=== PATIENT | male | born 1965 | race Caucasian/White ===

== ENCOUNTER → 2023-03-03 08:29 | Outpatient (BNVA) | payer OTHER, SELFPAY | PROVIDERS: Visit Provider Physician Assistant ==

== ENCOUNTER 2023-03-10 08:12 | Outpatient (AMB) | payer OTHER, SELFPAY ==
--- NOTE | 2023-03-10 13:31 | A.OFFVIS_ITS ---
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 HPI Details Start time: 1.25pm, End time: 2.07pm ?I spent 37 minutes speaking with the patient on the phone plus an additional 5 minutes reviewing and updating records for a total of 42 minutes HPI Comments History of Present Illness Details Previous weight loss efforts: self diet and exercise Wakes up: 1.30am, Sleeps: 9pm Breakfast: skips Lunch: 11am (chicken salad, ham and cheese wrap) Dinner: 5.30pm (meatloaf or chicken) Snacks: 9am (granola bar), 3-4pm (fruit or granola bar) Exercise: none, has a treadmill at home Fluids: Coffee: none, tea: none, soda: 1 can of sprite or gingerale, juice: 1-2 bottles (lemonade or iced tea), ETOH: none PFSH Medical History (Updated 03/10/23 @ 13:35 by Richard Torres MD) DJD (degenerative joint disease) GERD (gastroesophageal reflux disease) Hypertension Morbid obesity Surgical History (Updated 03/03/23 @ 11:18 by Amberly Taylor [facility]) Hx of spinal fusion Hx of colonoscopy Family History (Updated 03/10/23 @ 11:46 by Shira Mcelroy CMA) Mother Heart problem Father Heart problem Son No problems noted. Son No problems noted. Son No problems noted. Daughter No problems noted. Social History (Updated 03/10/23 @ 11:45 by Shira Mcelroy CMA) Alcohol intake: current Alcohol intake frequency: holidays/special occasions only Patient Tobacco Use Status: Never used Tobacco Assessment & Plan Assessment & Plan (1) Morbid obesity: Code(s): E66.01 - Morbid (severe) obesity due to excess calories Plan: 1.? Plan for lap sleeve gastrectomy. If diaphragmatic or ventral hernias are present at time of surgery, these will be repaired laparoscopically as well. 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 I emphasized the importance of close follow-up, adherence to instructions and good communication. 2. Nutritional counseling. Start with one Orgain protein shakes (ONE scoop EACH in 8oz low fat unsweetened almond milk) at 2.30am-4.30am, 3 Fit Crunch protein bars at 5.30am-7.30am, 8.30am-10.30am and 11.30am-1.30pm, one Orgain protein shake (ONE scoop EACH in 8oz low fat unsweetened almond milk) at 2.30pm-4.30pm, dinner at 5.30pm (12 forks of protein and 12 forks of salad/vegetables) and HALF protein bar at 7.30pm-8.30pm So you do 2 protein shakes, 3.5 protein bars and one meal per day. Meal to include lean meat (beef, fish, pork, turkey, chicken), or welsh yogurt, or egg whites, or beans with a salad with olive oil and fruits (berries, pears, apples, kiwi). Avoid salt, breads, potatoes, rice, pasta, desserts. 3. Each shake would be drunk slowly, like coffee in a period of 2 hours. 4. Cut each bar in 4 pieces and eat each piece in 30min ?to make each bar last 2 hours. 5. I emphasized the importance of measuring accurately the food portion and measure it when serving the food in plate 6. The meal portions include 12 full-size forks of meat and 12 full-size forks of salad. You always eat the meat portion but you can replace up to 6 forks for salad/vegetables with rice, potatoes or pasta, or a fruit ?if you like. The less you do it the better weight loss will be. 7. One full-size fork is what it can be scooped on the fork without falling aside and not what can be bit with the fork. Use regular forks like those you find in a typical restaurant. 8.? Please send me weight measurements as soon as possible and then once a week. Always include your diet and exercise plan. 9. Start treadmill with an incline of 2.0 and speed of 3.0. Increase incline by 1 every 3 min to a max incline of 8.0, stay 3min at 8.0 and then return to 2.0 and repeat same steps until calorie goal is met. Goal is to burn 2000 calories per week on exercise, which means either 300 calories daily, or 400 calories 5 days per week, or 500 calories 4 days per week, or 650 calories 3 days per week. 10.?Goal is to lose at least 1.5-2lbs per week 11. Goal to lose 10% of your weight before surgery, which is about 32lbs. Ultimate weight goal: 290lbs before surgery 12. Please follow the diet plan exactly without any change. If you don't like something about the plan or you feel hungry you need to communicate with me so I can help you revise the plan. You should not change the plan yourself. (2) Hypertension: Code(s): I10 - Essential (primary) hypertension (3) GERD (gastroesophageal reflux disease): Code(s): K21.9 - Gastro-esophageal reflux disease without esophagitis Orders: Orders Lipid Panel Today E66.01 - Morbid (severe) obesity due to excess calories, I10 - Essential (primary) hypertension, K21.9 - Gastro-esophageal reflux disease without esophagitis Complete Blood Count Auto Diff Today E66.01 - Morbid (severe) obesity due to excess calories, I10 - Essential (primary) hypertension, K21.9 - Gastro- esophageal reflux disease without esophagitis Comprehensive Met. Panel Today E66.01 - Morbid (severe) obesity due to excess calories, I10 - Essential (primary) hypertension, K21.9 - Gastro-esophageal reflux disease without esophagitis C Reactive Protein Today E66.01 - Morbid (severe) obesity due to excess calories, I10 - Essential (primary) hypertension, K21.9 - Gastro-esophageal reflux disease without esophagitis PTHI Today E66.01 - Morbid (severe) obesity due to excess calories, I10 - Essential (primary) hypertension, K21.9 - Gastro-esophageal reflux disease without esophagitis H Pylori Breath Test Today E66.01 - Morbid (severe) obesity due to excess calories, I10 - Essential (primary) hypertension, K21.9 - Gastro-esophageal reflux disease without esophagitis Hemoglobin A1c Today E66.01 - Morbid (severe) obesity due to excess calories, I10 - Essential (primary) hypertension, K21.9 - Gastro-esophageal reflux disease without esophagitis XR chest 2V Today E66.01 - Morbid (severe) obesity due to excess calories, I10 - Essential (primary) hypertension, K21.9 - Gastro-esophageal reflux disease without esophagitis FL upper GI w air Today E66.01 - Morbid (severe) obesity due to excess calories, I10 - Essential (primary) hypertension, K21.9 - Gastro-esophageal reflux disease without esophagitis Insulin Today E66.01 - Morbid (severe) obesity due to excess calories, I10 - Essential (primary) hypertension, K21.9 - Gastro-esophageal reflux disease without esophagitis IRON PROFILE Today E66.01 - Morbid (severe) obesity due to excess calories, I10 - Essential (primary) hypertension, K21.9 - Gastro-esophageal reflux disease without esophagitis Vitamin B12 and Folate Today E66.01 - Morbid (severe) obesity due to excess calories, I10 - Essential (primary) hypertension, K21.9 - Gastro-esophageal reflux disease without esophagitis Zinc Today E66.01 - Morbid (severe) obesity due to excess calories, I10 - Essential (primary) hypertension, K21.9 - Gastro-esophageal reflux disease without esophagitis Vitamin B1 Today E66.01 - Morbid (severe) obesity due to excess calories, I10 - Essential (primary) hypertension, K21.9 - Gastro-esophageal reflux disease without esophagitis Vitamin A Today E66.01 - Morbid (severe) obesity due to excess calories, I10 - Essential (primary) hypertension, K21.9 - Gastro-esophageal reflux disease without esophagitis Ferritin Today E66.01 - Morbid (severe) obesity due to excess calories, I10 - Essential (primary) hypertension, K21.9 - Gastro-esophageal reflux disease without esophagitis TSH reflex Free T4 Today E66.01 - Morbid (severe) obesity due to excess calories, I10 - Essential (primary) hypertension, K21.9 - Gastro-esophageal reflux disease without esophagitis Vitamin D 25-OH Total Today E66.01 - Morbid (severe) obesity due to excess calories, I10 - Essential (primary) hypertension, K21.9 - Gastro-esophageal reflux disease without esophagitis US abdomen comp w elastography Today E66.01 - Morbid (severe) obesity due to excess calories, I10 - Essential (primary) hypertension, K21.9 - Gastro- esophageal reflux disease without esophagitis ECG 12 lead EKG Today E66.01 - Morbid (severe) obesity due to excess calories, I10 - Essential (primary) hypertension, K21.9 - Gastro-esophageal reflux disease without esophagitis Referrals Behavioral Health Referral E66.01 - Morbid (severe) obesity due to excess calories, I10 - Essential (primary) hypertension, K21.9 - Gastro-esophageal reflux disease without esophagitis Nutrition/Dietitian Referral E66.01 - Morbid (severe) obesity due to excess calories, I10 - Essential (primary) hypertension, K21.9 - Gastro-esophageal reflux disease without esophagitis Telehealth Telehealth Location of provider rendering services: practice address Location of patient: address on file Patient Identification confirmed using: Name, : Yes Telehealth method: voice only Patient verbally consented to treatment: Yes Patient verbally consented to billing insurance company: Yes Patient informed of any privacy concerns related to visit: Yes Minutes spent on Phone/Video with Pt.: 42 Coding Level of Care Code Tele New Pt Level 3 (88901) Diagnoses Morbid obesity E66.01 Hypertension I10 GERD (gastroesophageal reflux disease) K21.9 Time Spent (min) 42
[2023-03-10 13:43] VITALS: BMI 47.5
== END 2023-03-10 14:08 | disposition home or self-care (01) ==
LOC: HO.HBS 08:12
PROVIDERS: Visit Provider Surgery
DX: E66.01 Morbid (severe) obesity due to excess calories (principal); I10 Essential (primary) hypertension; K21.9 Gastro-esophageal reflux disease without esophagitis
CPT/HCPCS: 99203

== ENCOUNTER → 2023-03-10 08:12 | Outpatient (BNVA) | payer OTHER, SELFPAY | PROVIDERS: Visit Provider Surgery ==

== ENCOUNTER → 2023-03-24 10:32 | Outpatient (BNVA) | payer OTHER, SELFPAY | PROVIDERS: PCP Internal Medicine; Visit Provider Physician Assistant Surgical | DX: K21.9 Gastro-esophageal reflux disease without esophagitis (principal); E66.01 Morbid (severe) obesity due to excess calories; I10 Essential (primary) hypertension; Z11.2 Encounter for screening for other bacterial diseases | CPT/HCPCS: 99211 ==

== ENCOUNTER 2023-03-24 11:05 | Outpatient (REF) | payer OTHER, SELFPAY ==
--- NOTE | ~2023-03-24 | XR_ITS ---
EXAMINATION: XR CHEST CLINICAL INFORMATION: Gastroesophageal reflux disease without esophagitis. COMPARISON: None available. TECHNIQUE: Frontal and lateral views of the chest were obtained. FINDINGS: The heart, great vessels, pulmonary vasculature and mediastinum are normal. The lungs show no focal infiltrate, effusion or pneumothorax. There is no acute osseous abnormality. There is multi-level thoracic spondylosis. XR/XR chest 2V IMPRESSION: No active cardiopulmonary disease.
[2023-03-24 11:22] LABS: MANUAL DIFF FLAG NO
--- NOTE | 2023-03-24 11:34 | ECG_ITS ---
Test Reason : GERD Blood Pressure : / mmHG Vent. Rate : 096 BPM Atrial Rate : 096 BPM P-R Int : 148 ms QRS Dur : 128 ms QT Int : 384 ms P-R-T Axes : 069 -61 075 degrees QTc Int : 485 ms Normal sinus rhythm Right bundle branch block Left anterior fascicular block Bifascicular block Minimal voltage criteria for LVH, may be normal variant ( R in aVL ) Abnormal ECG No previous ECGs available Referred By: Richard Torres Electronically Signed By:CRUZ ENCISO MD
[2023-03-24 11:53] LABS: Basophils Absolute Auto 0.1 X10*3/uL (0.0-0.2); Basophils Percent Auto 0.8 % (0-2); Eosinophils Absolute Auto 0.1 X10*3/uL (0.0-0.4); Eosinophils Percent Auto 1.7 % (0-4); Hematocrit 36.9 % (42.0-52.0); Hemoglobin 13.5 g/dl (14.0-18.0); Imm Gran Abs Auto 0.03 X10*3/uL (0.00-0.03); Imm Gran Pct Auto 0.5 % (0.0-0.4); Lymphocytes Absolute Auto 2.3 X10*3/uL (1.2-4.9); Lymphocytes Percent Auto 38.1 % (20-40); Mean Corpuscular HGB Conc 36.6 g/dl (31.0-36.0); Mean Platelet Volume 10.2 fL (9.4-12.4); Monocytes Absolute Auto 0.4 X10*3/uL (0.1-1.2); Monocytes Percent Auto 7.2 % (2-11); Neutrophils Absolute Auto 3.1 x10*3/uL (2.0-8.3); Neutrophils Percent Auto 51.7 % (45-73); Platelet Count 252 X10*3/uL (160-400); Red Blood Count 3.14 X10*6/uL (4.60-5.80); Red Cell Distribution Width 13.6 % (11.0-16.0)
[2023-03-24 11:58] LABS: Mean Corpuscular Volume 117.5 fL (80.0-98.0)
[2023-03-24 12:18] LABS: Estimated Average Glucose 114 mg/dL; Hemoglobin A1c % 5.6 % (<6.0)
[2023-03-24 12:51] LABS: Alanine Aminotransferase 39 U/L (0-40); Albumin Level 4.4 g/dL (3.5-5.0); Alkaline Phosphatase 57 U/L (39-117); Anion Gap 12 (12-20); Aspartate Amino Transferase 33 U/L (5-37); Bilirubin Total 0.9 mg/dL (0.0-1.0); Blood Urea Nitrogen 12 mg/dL (9-16); C Reactive Protein 0.21 mg/dL (< or = 0.50); Calcium 9.2 mg/dL (8.4-10.2); Carbon Dioxide 29 mmol/L (22-29); Chloride 101 mmol/L (96-108); Cholesterol 183 mg/dL (<200); Estimated Glomerular Filt Rate > 60; Ferritin 169 ng/mL (20-250); Glucose Random 95 mg/dL (60-115); HDL Cholesterol 21 mg/dL (>40); Iron 145 mcg/dL (45-160); LDL Cholesterol Calculated 133 mg/dL (<100); Percent Iron Saturation 50 % (15-50); Potassium 4.2 mmol/L (3.3-5.1); Sodium 138 mmol/L (135-145); TSH reflex Free T4 11.78 uIU/mL (0.32-4.0); Total Iron Binding Capacity 291 mcg/dL (228-428); Total Protein 8.1 g/dL (6.5-8.0); Triglycerides 148 mg/dL (<150); Unsaturated Iron Binding 146 ug/dL; Vitamin D 25-OH Total 23.3 ng/mL (>30)
[2023-03-24 13:16] LABS: Folate 14.9 ng/mL (> or = 4.0)
[2023-03-24 14:15] LABS: Vitamin B12 223 pg/mL (200-900)
[2023-03-24 14:53] LABS: Free T4 (Free Thyroxine) 0.58 ng/dL (0.71-1.85)
[2023-03-25 09:09] LABS: H Pylori Breath Test Negative (Negative)
[2023-03-27 11:53] LABS: Calcium (PTHI) 9.3 mg/dL (8.6-10.3); PTHI 60 pg/mL (16-77)
[2023-03-28 14:48] LABS: Zinc 85 mcg/dL (60-130)
[2023-03-28 16:03] LABS: Vitamin B1 <6 nmol/L (8-30)
[2023-03-29 04:08] LABS: Vitamin A 51 mcg/dL (38-98)
== END 2023-03-24 11:06 | disposition home or self-care (01) ==
LOC: HO.LAB 11:05
PROVIDERS: Visit Provider Surgery
DX: K21.9 Gastro-esophageal reflux disease without esophagitis (principal); E66.01 Morbid (severe) obesity due to excess calories; I10 Essential (primary) hypertension
CPT/HCPCS: 36415; 71046; 80053; 80061; 82306; 82607; 82728; 82746; 83013; 83036; 83540; 83970; 84425; 84439; 84443; 84590; 84630; 85025; 86140; 93005

== ENCOUNTER 2023-04-14 11:30 | Outpatient (AMB) | payer OTHER, SELFPAY ==
--- NOTE | 2023-04-14 11:16 | MHC.AMNUTRGE ---
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 His had bariatric surgery our is extremely well. Today we discussed the importance of keeping each other accountable [facility] online classes: none yet Dietary counseling reduction Who buys your food self and spouse Who prepares/cooks your food self and spouse Meal frequency regular: snacks Lifestyle Eating out 4 or more times/week Family support Yes ( is post op ) Food frequency Fruit: daily, Vegetables: daily, Grains/pasta/breads/cereal (carbs): daily, Meats/poultry/fish (protein): daily, Meat substitutes/nuts/seeds/legumes: daily and Processed foods/meats: daily Diagnosis Nutrition problem #1 overweight/obesity As related to (etiology) #1 excess energy intake and physical inactivity As evidenced by (sign/symptom) #1 high BMI Monitoring/Goals Nutrition problem monitoring total energy intake, level of knowledge/skill, total PRO intake, total CHO intake and weight Outcome progress progressing Learning/Education Readiness to learn good Stages of change action Educational materials provided Yes Most Recent Diabetes Results: Cholesterol 183 mg/dL (<200) 03/24/23 HDL Cholesterol 21 mg/dL (>40) L 03/24/23 Triglycerides 148 mg/dL (<150) 03/24/23 Creatinine 0.86 mg/dL (0.5-1.4) 03/24/23 Blood Urea Nitrogen 12 mg/dL (9-16) 03/24/23 Sodium 138 mmol/L (135-145) 03/24/23 Potassium 4.2 mmol/L (3.3-5.1) 03/24/23 Chloride 101 mmol/L (96-108) 03/24/23 Carbon Dioxide 29 mmol/L (22-29) 03/24/23 Calcium 9.2 mg/dL (8.4-10.2) 03/24/23 AST 33 U/L (5-37) 03/24/23 ALT 39 U/L (0-40) 03/24/23 Total Protein 8.1 g/dL (6.5-8.0) H 03/24/23 Albumin 4.4 g/dL (3.5-5.0) 03/24/23 PFSH Medical History (Updated 04/01/23 @ 12:04 by Richard Torres MD) Hypothyroidism DJD (degenerative joint disease) GERD (gastroesophageal reflux disease) Hypertension Morbid obesity Surgical History (Updated 03/03/23 @ 11:18 by Amberly Taylor [facility]) Hx of spinal fusion Hx of colonoscopy Family History (Updated 03/10/23 @ 11:46 by Shira Mcelroy CMA) Mother Heart problem Father Heart problem Son No problems noted. Son No problems noted. Son No problems noted. Daughter No problems noted. Social History (Updated 03/10/23 @ 11:45 by Shira Mcelroy CMA) Alcohol intake: current Alcohol intake frequency: holidays/special occasions only Patient Tobacco Use Status: Never used Tobacco Assessment & Plan Assessment & Plan (1) Morbid obesity: Code(s): E66.01 - Morbid (severe) obesity due to excess calories Plan: Patient will be cleared once online classes completed Telehealth Telehealth Location of provider rendering services: practice address Location of patient: address on file Patient Identification confirmed using: Name, : Yes Telehealth method: video Patient verbally consented to treatment: Yes Patient verbally consented to billing insurance company: Yes Patient informed of any privacy concerns related to visit: Yes Minutes spent on Phone/Video with Pt.: 20 Coding Level of Care Code Nutr Indiv Intake (13332) Diagnoses Morbid obesity E66.01 Time Spent (min) 20
[2023-04-14 11:21] VITALS: BMI 45.3
[2023-04-14 11:54] VITALS: BMI 45.3
== END 2023-04-14 13:38 | disposition home or self-care (01) ==
LOC: HO.HBS 11:30
PROVIDERS: PCP Internal Medicine; Visit Provider Dietitian, Registered
DX: E66.01 Morbid (severe) obesity due to excess calories (principal)

== ENCOUNTER → 2023-04-14 11:30 | Outpatient (BNVA) | payer OTHER, SELFPAY | PROVIDERS: PCP Internal Medicine; Visit Provider Dietitian, Registered | DX: E66.01 Morbid (severe) obesity due to excess calories (principal); Z68.45 Body mass index [BMI] 70 or greater, adult; Z71.3 Dietary counseling and surveillance | CPT/HCPCS: 97802 ==

== ENCOUNTER 2023-04-21 08:08 | Outpatient (AMB) | payer OTHER, SELFPAY ==
--- NOTE | 2023-04-21 08:55 | A.OFFVIS_ITS ---
Intake VS Expanded 04/21/23 09:15 Height 5 ft 9 in Weight 303 lb 8 oz BMI 44.8 Body Fat % 55.3 Body Fat Mass 168 Fat Free Mass 135.8 Visceral Fat Rating 29 Body Water % 32.3 Body Water Mass 98.1 Basal Metabolic Rate/Score 1,678 Intake Visit Reasons: TV Follow Up SWL - 1ST Allergies Penicillins [PENICILLINS] Allergy (Unknown, Verified 03/10/23 13:31) FACIAL RASH HPI TV Follow Up SWL - 1ST HPI Details Start time: 8.53am, End time: 9.23am ?I spent 25 minutes speaking with the patient on the phone plus an additional 5 minutes reviewing and updating records for a total of 30 minutes HPI Comments History of Present Illness Details Overall weight loss: 18.2lbs, or 5.65% TBWL Is doing 2 Fairlife protein shakes, 2 Fit Crunch protein bars and one meal (meat and salad or vegetables) and one Isopure Infusions at night (1 scoop in water) Exercise: doing treadmill 4 days per week PFSH Medical History (Updated 04/01/23 @ 12:04 by Richard Torres MD) Hypothyroidism DJD (degenerative joint disease) GERD (gastroesophageal reflux disease) Hypertension Morbid obesity Surgical History (Updated 03/03/23 @ 11:18 by Amberly Taylor [facility]) Hx of spinal fusion Hx of colonoscopy Family History (Updated 03/10/23 @ 11:46 by Shira Mcelroy [employer]) Mother Heart problem Father Heart problem Son No problems noted. Son No problems noted. Son No problems noted. Daughter No problems noted. Social History (Updated 03/10/23 @ 11:45 by Shira Mcelroy [facility]) Alcohol intake: current Alcohol intake frequency: holidays/special occasions only Patient Tobacco Use Status: Never used Tobacco Assessment & Plan Assessment & Plan (1) Morbid obesity: Code(s): E66.01 - Morbid (severe) obesity due to excess calories Plan: 1. Change nutritional plan to one Isopure Infusions protein shake (HALF scoop in 8oz water) at 2.30am-4.30am, 3 Fit Crunch protein bars at 5.30am-7.30am, 8.30am-10.30am and 11.30am-1.30pm, one Isopure Infusions protein shake (HALF scoop in 8oz water) at 2.30pm-4.30pm, dinner at 5.30pm (12 forks of protein and 12 forks of salad or vegetables). If hungry, you can have another HALF protein bar at 7.30pm-8.30pm. 2. continue treadmill (speed: 3.0 and incline 4-10) 4 days per week and track calories for a goal of 400 calories per work-out. 3. It is OK to do the treadmill twice per day in your days off 4. Send me pictures of your meal plate after you measure it and before you eat it 5. Continue to send me weight measurements weekly on Saturdays Telehealth Telehealth Location of provider rendering services: practice address Location of patient: address on file Patient Identification confirmed using: Name, : Yes Telehealth method: voice only Patient verbally consented to treatment: Yes Patient verbally consented to billing insurance company: Yes Patient informed of any privacy concerns related to visit: Yes Minutes spent on Phone/Video with Pt.: 30 Coding Level of Care Code Tele Est Pt Level 4 (01970) Diagnoses Morbid obesity E66.01 Time Spent (min) 30
[2023-04-21 09:15] VITALS: BMI 44.8
== END 2023-04-21 09:24 | disposition home or self-care (01) ==
LOC: HO.HBS 08:08
PROVIDERS: PCP Internal Medicine; Visit Provider Surgery
DX: E66.01 Morbid (severe) obesity due to excess calories (principal)
CPT/HCPCS: 99214

== ENCOUNTER → 2023-04-21 09:59 | Outpatient (REF) | payer OTHER, SELFPAY ==
--- NOTE | 2023-04-21 10:01 | CA_ITS ---
Transthoracic Echocardiogram Patient (Last, First, Middle): Lucas Emerson, Gender: Male Date of : 1965 Age: 57 Procedure Date: 04/21/2023 Procedure Type: Transthoracic Echocardiogram Location: OP Height: 175.26 cm Weight: 136.08 kg BSA: 2.45 m2 Heart Rate: bpm BP: 130 / 68 mmHg Maintenance Supervisor Electrical: TO Referring MD: Richard Torres MD Symptoms: R94.31 - Abnormal electrocardiogram [ECG] [EKG] Study Quality: Technically Difficult/Contrast Conclusions: - Normal left ventricular size and systolic function. There is mildly increased left ventricular wall thickness. The visually estimated ejection fraction is between 55-60%. - Normal right ventricular cavity size and systolic function. - There is mild dilatation of the sinuses of Valsalva measuring 3.98 cm and mild dilatation of the ascending aorta measuring 4.00 cm. Findings Procedure Information Contrast agent, definity, is being given per protocol without apparent complications. Left Ventricle Normal left ventricular size and systolic function. There is mildly increased left ventricular wall thickness. The visually estimated ejection fraction is between 55-60%. There is no evidence of regional wall motion abnormalities. Diastolic function is indeterminate on the basis of available data. Right Ventricle Normal right ventricular cavity size and systolic function. Atria The left atrium is normal in size. The right atrium is normal in size. Aortic Valve Normal aortic valve structure and function. There is no aortic valve stenosis. There is no aortic valve regurgitation. Mitral Valve The mitral valve appears normal. There is no mitral valve regurgitation. There is no mitral valve stenosis. Pulmonic Valve The pulmonic valve is likely normal. Tricuspid Valve Normal tricuspid valve structure and function. There is no tricuspid valve regurgitation. Normal right atrial pressure. There is no evidence of pulmonary hypertension. Great Vessels There is mild dilatation of the sinuses of Valsalva measuring 3.98 cm and mild dilatation of the ascending aorta measuring 4.00 cm. The visualized portions of the pulmonary artery and branches are normal. Venous The inferior vena cava is normal in size and collapses greater than 50% with inspiration. Pericardium/Pleural There is no evidence of pericardial effusion. Prior Study Comparison No prior study available for comparison. Measurements 2D Linear Measurements IVSd: 1.33 0.6-0.9/0.6-1.0 cm LVIDd: 4.85 3.9-5.3/4.2-5.9 cm LVIDd Index: 1.98 2.4-3.2/2.2-3.1 cm/m2 LVIDs: 3.35 2.0-3.6 cm LVPWd: 1.06 0.7-1.1 cm LA Diam: 3.70 2.7-3.8/3.0-4.0 cm LAIDs Index: 1.51 1.5-2.3 cm/m2 LV Mass: 276.04 67-162/88-224 g LV Mass Index: 112.67 43-95/49-115 g/m2 LVOT Diam: 2.30 3.0+(-)1.3 cm 2D Systolic Function EF 4C: 50.70 >55% EF 2C: 51.60 >55% EF BiP: 51.70 >55% Mitral Valve MV Pk E: 0.65 MV PK A: 0.64 MV Decel Time: 257.00 E/A: 1.00 E'Lateral: 7.83 E'Medial: 6.85 E/E' Med: 9.40 E/E' Lat: 8.30 PHT: 75.00 MVA PHT: 2.93 Decel Estill: 2.52 Aortic Valve AoV Pk Lance: 1.33 AoV Mn Lance: 0.96 AoV VTI: 0.26 AoV Pk Grad: 7.00 Aov Mn Grad: 4.00 KATHY Cont.VTI: 4.67 LVOT LVOT Pk Lance: 1.45 LVOT Mn Lance: 1.00 LVOT VTI: 0.30 LVOT Pk Grad: 8.00 LVOT Mn Grad: 5.00 LVOT Diam: 2.30 LVOT Area: 4.15 Diastolic Function MV Pk E: 0.65 MV Pk A: 0.64 E/A: 1.00 E'Medial: 6.85 E/E' Med: 9.40 E' Laterial: 7.83 E/E' Lat: 8.30 Right Ventricle TAPSE (mm): 18.50 TVS' Lance: 12.60 Tricuspid Valve TR Pk Lance: 2.10 TR Pk Grad: 18.00 RA Press: 3.00 RVSP: 21.00 Great Vessels Aorta Sinus of Valsalva: 3.98 2.0-3.5 cm Ao Asc: 4.00 2.1-3.4 cm Updated in Other Vendor System with Status of Final Marco Antonio Villa MD electronically signed on 04/23/2023 7:48:56 PM with status of Final
== END ==
LOC: HO.CARD 09:59
PROVIDERS: PCP Internal Medicine; Visit Provider Surgery
DX: I45.10 Unspecified right bundle-branch block (principal); I44.4 Left anterior fascicular block; R94.31 Abnormal electrocardiogram [ECG] [EKG]; E66.01 Morbid (severe) obesity due to excess calories
CPT/HCPCS: 93306; Q9957

== ENCOUNTER → 2023-04-21 10:01 | Outpatient (BNV) | payer OTHER, SELFPAY | PROVIDERS: PCP Internal Medicine; Visit Provider Internal Medicine Cardiovascular Disease | DX: R94.31 Abnormal electrocardiogram [ECG] [EKG] (principal); I44.4 Left anterior fascicular block | CPT/HCPCS: 93306 ==

== ENCOUNTER 2023-05-05 07:59 | Outpatient (REF) | payer OTHER, SELFPAY | END 2023-05-05 08:00 | disposition home or self-care (01) | LOC: HO.US 07:59 | PROVIDERS: PCP Internal Medicine; Visit Provider Surgery | DX: K21.9 Gastro-esophageal reflux disease without esophagitis (principal); E66.01 Morbid (severe) obesity due to excess calories; I10 Essential (primary) hypertension | CPT/HCPCS: 76705; 76981 ==

== ENCOUNTER 2023-05-05 09:11 | Outpatient (AMB) | payer OTHER, SELFPAY ==
--- NOTE | 2023-05-05 09:01 | A.OFFWM_ITS ---
Intake Intake Visit Reasons: VIDEO BH Intake Allergies Penicillins [PENICILLINS] Allergy (Unknown, Verified 03/10/23 13:31) FACIAL RASH PFSH Medical History (Updated 05/05/23 @ 09:17 by Mónica Abrams) Hypothyroidism DJD (degenerative joint disease) GERD (gastroesophageal reflux disease) Hypertension Morbid obesity Surgical History (Updated 03/03/23 @ 11:18 by Amberly Taylor [facility]) Hx of spinal fusion Hx of colonoscopy Family History (Updated 03/10/23 @ 11:46 by Shira Mcelroy [facility]) Mother Heart problem Father Heart problem Son No problems noted. Son No problems noted. Son No problems noted. Daughter No problems noted. Social History (Updated 03/10/23 @ 11:45 by Shira Mcelroy [facility]) Alcohol intake: current Alcohol intake frequency: holidays/special occasions only Patient Tobacco Use Status: Never used Tobacco Behavioral Health Assessment Weight Management Therapy Therapy Notes Details Pt reported that he is looking to have weight loss surgery to help improve his health and quality of life. He reported struggling with tying his shoes, walking without running out of breathe, and struggling with his health. He reported that he has never been in therapy and has no mental health history. He did report depression in the past year, feeling hopeless and having thoughts of not being around anymore. He also reported thoughts of suicide on the PHQ-9 questionnaire. Today he reported that he has not had those thoughts anymore and feels significantly better. Presenting Concerns Referral Source provider Reason for referral weight loss surgery evaluation Precipitating Event obesity Living Situation Current Living Situation Own At risk of losing current housing? No Satisfied with current living situation? Yes Comments Pt lives with his and 14, and 12 year old twins every other week that he shares custody with his ex . Food/Weight/Diet Expectations of change weight loss and maintenance History/Relationship with food Pt stated that he was eating fast food, greasy fried foods, drinking beer, cupcakes and soda for breakfast. Also snacking after dinner before bed. He was also eating large portions. History/Relationship with weight Pt stated that he started to gain weight after the pandemic. He is at his heaviest. He stated that he was always around 260lbs. History/Relationship with dieting Pt stated that he tried various diets on his own but never as structured or committed as now. Binge Eating Do you frequently eat large amounts of food in short periods of time, not feeling physically hungry? Yes Do you feel out of control when you eat a large amount of food in a short period of time? No Night Eating Do you wake up at least once during the night to eat? No If you wake up in the night, do you find that it is necessary to eat something in order to fall back asleep? No Do you have little or no appetite in the morning and feel very hungry in the evening, often overeating between dinner and when you go to bed? No Social History Family history and relationship Pt was raised by both his parents who are still living also two brothers and two sisters. They both have heart problems. One brother 20 years ago in a car accident. One of sisters is overweight. also one brother who lost significant weight recently. Pt is to his third since last summer. He has an adult child from his first marriage that he he does not have a rel. with. He has three children from his second that he shares custody with. 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 No Interested in further educational program? 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 No Meaningful activities [facility] Financial Situation Describe current financial situation Comfortable and Occasional struggle Financial assistance? None Service Service? No Mental Health and Addiction Treatment Current/Past substance abuse? Yes Comments Pt reported drinking beer in the summer mostly. Current/Past addictive behavior concerns? No Medical and Physical Health Summary Physical exam in the last year? Yes Pain Screening Current pain? No Pain in the last few months? No Medications Is the patient compliant with medications? Yes Does the patient have Velas[facility] Guardian in place? Not applicable Does the patient use complimentary health approaches? No Trauma/Abuse History History of trauma? No Questionnaires PHQ-9 Over the last 2 weeks, how often have you been bothered by any of the following problems? 1. Little interest or pleasure in doing things: not at all 2. Feeling down, depressed, or hopeless: several days 3. Trouble falling or staying asleep, or sleeping too much: more than half the days 4. Feeling tired or having little energy: more than half the days 5. Poor appetite or overeating: nearly every day 6. Feeling bad about yourself - or that you are a failure or have let yourself or your family down: nearly every day 7. Trouble concentrating on things, such as reading the newspaper or watching television: several days 8. Moving or speaking so slowly that other people could have noticed. Or the opposite - being so fidgety or restless that you have been moving around a lot more than usual: not at all 9. Thoughts that you would be better off or of hurting yourself in some way: several days Total score: 13 Source: Developed by Drs. Collins Alejandre, Shadia Bonilla, Ever Sniha and colleagues, with an educational sonya from [employer]. Binge Eating Scale Group 1 A. I don't feel self-conscious about my wt. or body size when I'm with others. B. I feel concerned about how I look to others, but it normally does not make me fell disappointed with myself C. I do get self-conscious about my appearance and wt. which makes me feel disappointed in myself. D. I feel very self-conscious about my wt. and frequently I feel intense shame and disgust for myself. I try to avoid social contacts because of my self- consciousness. Response Group 1: C Group 2 A. I don't have any difficulty eating slowly in the proper manner. B. Although I seem to gobble down foods, I don't end up feeling stuffed because of eating to much. C. At times, I tend to eat quickly and then, I feel uncomfortably full afterwards. D. I have the habit of bolting down my food, without really chewing it. When this happens I usually feel uncomfortably stuffed because I've eaten to much. Response Group 2: C Group 3 A. I feel capable to control my eating urges when I want to. B. I feel like I have failed to control my eating more than the average person. C. I feel utterly helpless when it comes to feeling in control of my eating urges. D. Because I feel so helpless about controlling my eating I have become very desperate about trying to get control. Response Group 3: A Group 4 A. I don't have the habit of eating when I'm bored. B. I sometimes eat when I'm bored, but often I'm able to get busy and get my mind off food. C. I have a regular habit of eating when I'm bored, but occasionally, I can use some other activity to get my mind off eating. D. I have a strong habit of eating when I'm bored. Nothing seems to help me breath the habit. Response Group 4: B Group 5 A. I'm usually physically hungry when I eat something. B. Occasionally, I eat something on impulse even though I really am not hungry. C. I have the regular habit of eating foods, that I might not really enjoy, to satisfy a hungry feeling even though physically, I don't need the food. D. Although I'm not physically hungry, I get a hungry feeling in my mouth that only seems to be satisfied when I eat a food, like sandwich, that fills my mouth. Sometimes, when I eat the food to satisfy my mouth hunger, I then spit the food out so I won't gain weight. Response Group 5: B Group 6 A. I don't feel any guilt or self-hate after I overeat. B. After I overeat, occasionally I feel guilt or self-hate. C. Almost all the time I experience strong guilt or self-hate after I overeat. Response Group 6: A Group 7 A. I don't lose total control of my eating when dieting even after periods when I overeat. B. Sometimes when I eat a forbidden food on a diet, I feel like I blew it and eat even more. C. Frequently, I have the habit of saying to myself, I've blown it now, why not go all the way, when I overeat on a diet. When that happens I eat more. D. I have a regular habit of starting a strict diets for myself but I break the diets by going on an eating binge. My life seems to be either a feast or famine. Response Group 7: A Group 8 A. I rarely eat so much food that I feel uncomfortably stuffed afterwards. B. Usually about once a month, I each such a quantity of food, I end up feeling very stuffed. C. I have regular periods during the month when I eat large amounts of food, either at mealtime or at snacks. D. I eat so much food that I regularly feel quite uncomfortable after eating and sometimes a bit nauseous. Response Group 8: C Group 9 A. My level of calorie intake does not go up very high or go down very low on a regular basis. B. Sometimes after I overeat, I will try to reduce my caloric intake to almost nothing to compensate for the excess calories I've eaten. C. I have a regular habit of overeating during the night. It seems that my routine is not to be hungry in the morning but overeat in the evening. D. In my adult years, I have had week-long periods where I practically starve myself. This follows periods when I overeat. It seems I live a life of either feast or famine. Response Group 9: B Group 10 A. I usually am able to stop eating when I want to. I know when enough is enough. B. Every so often, I experience a compulsion to eat which I can't seem to control. C. Frequently, I experience strong urges to eat which I seem unable to control, but at other times I can control my eating urges. D. I feel incapable of controlling urges to eat. I have a fear of not being able to stop eating voluntarily. Response Group 10: B Group 11 A. I don't have any problem stopping eating when I feel full. B. I usually can stop eating when I feel full but occasionally overeat leaving me feeling uncomfortably stuffed. C. I have a problem stopping eating once I start and usually I feel uncomfortably stuffed after I eat a meal. D. Because I have a problem not being able to stop eating when I want, I sometimes have to induce vomiting to relieve my stuffed feeling. Response Group 11: A Group 12 A. I seem to eat just as much when I'm with others, Family social gatherings as when I'm by myself. B. Sometimes, when I'm with other persons, I don't eat as much as I want to eat because I'm self-conscious about my eating. C. Frequently, I eat only a small amount of food when others are present, because I'm very embarrassed about my eating. D. I feel so ashamed about overeating that I pick times to overeat when I know no one will see me. I feel like a closet eater. Response Group 12: A Group 13 A. I eat three meals a day with only an occasional between meal snack. B. I eat 3 meals a day, but I also normally snack between meals. C. When I am snacking heavily, I get in the habit of skipping regular meals. D. There are regular periods when I seem to be continually eating, with no planned meals. Response Group 13: D Group 14 A. I don't think much about trying to control unwanted eating urges. B. At least some of the time, I feel my thoughts are pre-occupied with trying to control my eating urges. C. I feel that frequently I spend much time thinking about how much I ate or about trying not to eat anymore. D. It seems to me that most of my waking hours are pre-occupied by thoughts about eating or not eating. I feel like I'm constantly struggling not to eat. Response Group 14: A Group 15 A. I don't think about food a great deal. B. I have strong craving for food but they last only for brief periods of time. C. I have days when I can't seem to think about anything else but food. D. Most of my days seem to be pre-occupied with thoughts about food. I feel like I live to eat. Response Group 15: B Group 16 A. I usually know whether or not I'm physically hungry. I take the right portion of food to satisfy me. B. Occasionally, I feel uncertain about knowing whether or not I'm physically hungry. A these times it's hard to know how much food I should take to satisfy me. C. Even though I might know how many calories I should eat, I don't have any idea what is a normal amount of food for me. Response Group 16: C Binge Eating Score: 16 Score less than 17 Minimal Risk Score between 18-26 Moderate Risk Score between 27-46 High Risk Assessment & Plan Assessment & Plan (1) Dysthymia: Code(s): F34.1 - Dysthymic disorder (2) Morbid obesity: Code(s): E66.01 - Morbid (severe) obesity due to excess calories Plan He did report depression in the past year, feeling hopeless and having thoughts of not being around anymore. Pt reported that he was struggling in his relationships, feeling angry all the time, and yelling. He also reported thoughts of suicide on the PHQ-9 questionnaire. Today he reported that he has not had those thoughts anymore and feels significantly better. He would like to be seen again. Pt will be seen on the 24 of May. He is cleared for surgery when ready. Telehealth Telehealth Location of provider rendering services: other Location of patient: address on file Patient Identification confirmed using: Name, : Yes Telehealth method: voice only Patient verbally consented to treatment: Yes Patient verbally consented to billing insurance company: Yes Patient informed of any privacy concerns related to visit: Yes Minutes spent on Phone/Video with Pt.: 45 Coding Level of Care Code Tele Psy Diag Willie ([id number]) Diagnoses Dysthymia F34.1 Morbid obesity E66.01 Time Spent (min) 45
== END 2023-05-05 09:47 | disposition home or self-care (01) ==
LOC: HO.HBST 09:11
PROVIDERS: PCP Internal Medicine; Visit Provider Counselor Mental Health
DX: F34.1 Dysthymic disorder (principal); E66.01 Morbid (severe) obesity due to excess calories
CPT/HCPCS: 90791

== ENCOUNTER → 2023-05-12 08:31 | Outpatient (REF) | payer OTHER, SELFPAY ==
--- NOTE | ~2023-05-12 | NM_ITS ---
Exercise Myocardial perfusion study Indication: Abnormal EKG, preoperative cardiovascular evaluation Technique: The patient was brought in for an exercise perfusion study on 05/12/2023. Patient performed exercise as per Roberto protocol and was injected 40 mCi of sestamibi was given intravenously one target HR was achieved. Images were obtained using the SPECT gamma camera interlaced with the gating device. Images were obtained in supine position. Resting perfusion study was performed on 05/19/2023. Patient was administered 40 mCi of sestamibi intravenously at rest. Images were then obtained in supine position. Images were obtained with and without CT attenuation. However DLP could not be calculated due to technical issues Images were processed with the software and compared side to side in short axis, horizontal long axis and vertical long axis views. Findings: The stress perfusion study showed non attenuated images show moderately reduced uptake in the inferior, inferoseptal and adjacent inferolateral wall of the LV myocardium. Remainder of the LV myocardium is normally perfused. Attenuation corrected images show mildly reduced uptake in the distal septum and inferoapical wall of the LV myocardium.. The gated study shows normal LV systolic function with calculated LVEF of 63%. LV cavity is normal in in size. The gated study shows normal systolic wall thickening and contraction of all segments. There is no transient ischemic dilation. Resting study shows non attenuated images show no change in perfusion pattern compared to stress perfusion study. Attenuation corrected images show improved uptake in the distal septum and inferoapical wall of the LV myocardium.. Gating at rest reveals normal systolic wall motion with ejection fraction at greater than 60%. The findings are consistent with reversible defect on attenuated corrected images in the inferoapical and distal septum suggestive of ischemia in RCA territory.. NM/NM amelia perf SPECT rest & str Impression: 1. Inferoapical and distal septal ischemia in RCA territory, small area of mild intensity 2. Gated LVEF is 63% 3. Transient ischemic dilatation not present Stress EKG is suggestive of ischemia
== END ==
LOC: HO.CARD 08:31
PROVIDERS: PCP Internal Medicine; Visit Provider Surgery
DX: I45.10 Unspecified right bundle-branch block (principal); I44.4 Left anterior fascicular block; R94.31 Abnormal electrocardiogram [ECG] [EKG]
CPT/HCPCS: 78452; 93017; A9500

== ENCOUNTER → 2023-05-12 08:33 | Outpatient (BNV) | payer OTHER, SELFPAY | PROVIDERS: PCP Internal Medicine; Visit Provider Nurse Practitioner | DX: I25.10 Atherosclerotic heart disease of native coronary artery without angina pectoris (principal) | CPT/HCPCS: 78452; 93016; 93018 ==

== ENCOUNTER 2023-05-24 16:00 | Outpatient (AMB) | payer OTHER, SELFPAY ==
--- NOTE | 2023-05-24 16:31 | A.OFFWM_ITS ---
Intake Intake Visit Reasons: VIDEO BH F/U Allergies Penicillins [PENICILLINS] Allergy (Unknown, Verified 03/10/23 13:31) FACIAL RASH PFSH Medical History (Updated 05/05/23 @ 09:17 by Mónica Abrams) Hypothyroidism DJD (degenerative joint disease) GERD (gastroesophageal reflux disease) Hypertension Morbid obesity Surgical History (Updated 03/03/23 @ 11:18 by Amberly Taylor [facility]) Hx of spinal fusion Hx of colonoscopy Family History (Updated 03/10/23 @ 11:46 by Shira Mcelroy [facility]) Mother Heart problem Father Heart problem Son No problems noted. Son No problems noted. Son No problems noted. Daughter No problems noted. Social History (Updated 03/10/23 @ 11:45 by Shira Mcelroy [facility]) Alcohol intake: current Alcohol intake frequency: holidays/special occasions only Patient Tobacco Use Status: Never used Tobacco Behavioral Health Assessment Weight Management Therapy Therapy Notes Details Lucas reported doing very well. His mood has improved, has not had any episodes of anger or depression symptoms. Still is not getting enough sleep due to work. Motivational interviewing, strength exploration, positive reinforcement, active and supportive listening used. Pt reported that he is looking to have weight loss surgery to help improve his health and quality of life. He reported struggling with tying his shoes, walking without running out of breathe, and struggling with his health. He reported that he has never been in therapy and has no mental health history. He did report depression in the past year, feeling hopeless and having thoughts of not being around anymore. He also reported thoughts of suicide on the PHQ-9 questionnaire. Today he reported that he has not had those thoughts anymore and feels significantly better. Presenting Concerns Referral Source provider Reason for referral weight loss surgery evaluation Precipitating Event obesity Living Situation Current Living Situation Own At risk of losing current housing? No Satisfied with current living situation? Yes Comments Pt lives with his and 14, and 12 year old twins every other week that he shares custody with his ex . Food/Weight/Diet Expectations of change weight loss and maintenance History/Relationship with food Pt stated that he was eating fast food, greasy fried foods, drinking beer, cupcakes and soda for breakfast. Also snacking after dinner before bed. He was also eating large portions. History/Relationship with weight Pt stated that he started to gain weight after the pandemic. He is at his heaviest. He stated that he was always around 260lbs. History/Relationship with dieting Pt stated that he tried various diets on his own but never as structured or committed as now. Binge Eating Do you frequently eat large amounts of food in short periods of time, not feeling physically hungry? Yes Do you feel out of control when you eat a large amount of food in a short period of time? No Night Eating Do you wake up at least once during the night to eat? No If you wake up in the night, do you find that it is necessary to eat something in order to fall back asleep? No Do you have little or no appetite in the morning and feel very hungry in the evening, often overeating between dinner and when you go to bed? No Social History Family history and relationship Pt was raised by both his parents who are still living also two brothers and two sisters. They both have heart problems. One brother 20 years ago in a car accident. One of sisters is overweight. also one brother who lost significant weight recently. Pt is to his third since last summer. He has an adult child from his first marriage that he he does not have a rel. with. He has three children from his second that he shares custody with. 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 No Interested in further educational program? 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 No Meaningful activities [facility] Financial Situation Describe current financial situation Comfortable and Occasional struggle Financial assistance? None Service Service? No Mental Health and Addiction Treatment Current/Past substance abuse? Yes Comments Pt reported drinking beer in the summer mostly. Current/Past addictive behavior concerns? No Medical and Physical Health Summary Physical exam in the last year? Yes Pain Screening Current pain? No Pain in the last few months? No Medications Is the patient compliant with medications? Yes Does the patient have Velasco Guardian in place? Not applicable Does the patient use complimentary health approaches? No Trauma/Abuse History History of trauma? No Questionnaires PHQ-9 Over the last 2 weeks, how often have you been bothered by any of the following problems? 1. Little interest or pleasure in doing things: several days 2. Feeling down, depressed, or hopeless: not at all 3. Trouble falling or staying asleep, or sleeping too much: not at all 4. Feeling tired or having little energy: several days 5. Poor appetite or overeating: not at all 6. Feeling bad about yourself - or that you are a failure or have let yourself or your family down: not at all 7. Trouble concentrating on things, such as reading the newspaper or watching television: several days 8. Moving or speaking so slowly that other people could have noticed. Or the opposite - being so fidgety or restless that you have been moving around a lot more than usual: not at all 9. Thoughts that you would be better off or of hurting yourself in some way: not at all Total score: 3 Depression Screening Interpretation: Negative Depression Screening Done: Yes Source: Developed by Drs. Collins Alejandre, Shadia Bonilla, Ever Sinha and colleagues, with an educational sonya from [employer]. Assessment & Plan Assessment & Plan (1) Dysthymia: Code(s): F34.1 - Dysthymic disorder (2) Morbid obesity: Code(s): E66.01 - Morbid (severe) obesity due to excess calories Plan He did report depression in the past year, feeling hopeless and having thoughts of not being around anymore. Pt reported that he was struggling in his relationships, feeling angry all the time, and yelling. He also reported thoughts of suicide on the PHQ-9 questionnaire. Today he reported that he has not had those thoughts anymore and feels significantly better. He is cleared for surgery when ready. Pt will be seen again after surgery. Telehealth Telehealth Location of provider rendering services: practice address Location of patient: address on file Patient Identification confirmed using: Name, : Yes Telehealth method: voice only Patient verbally consented to treatment: Yes Patient verbally consented to billing insurance company: Yes Patient informed of any privacy concerns related to visit: Yes Minutes spent on Phone/Video with Pt.: 30 Coding Level of Care Code Tele Psytx 30 mins (10707) Diagnoses Dysthymia F34.1 Morbid obesity E66.01 Time Spent (min) 30
== END 2023-05-24 17:00 ==
LOC: HO.HBST 05-25 08:38
PROVIDERS: PCP Internal Medicine; Visit Provider Counselor Mental Health
DX: F34.1 Dysthymic disorder (principal); E66.01 Morbid (severe) obesity due to excess calories
CPT/HCPCS: 90832

== ENCOUNTER → 2023-05-24 16:00 | Outpatient (BNVA) | payer OTHER, SELFPAY | PROVIDERS: PCP Internal Medicine; Visit Provider Counselor Mental Health | DX: F34.1 Dysthymic disorder (principal); E66.01 Morbid (severe) obesity due to excess calories ==

== ENCOUNTER 2023-06-02 08:05 | Outpatient (AMB) | payer OTHER, SELFPAY ==
--- NOTE | 2023-06-02 08:58 | A.OFFVIS_ITS ---
Intake VS Expanded 06/02/23 09:08 Height 5 ft 9 in Weight 290 lb 2 oz BMI 42.8 Body Fat % 52.1 Body Fat Mass 151.1 Fat Free Mass 139 Visceral Fat Rating 27 Body Water % 34.6 Body Water Mass 100.4 Basal Metabolic Rate/Score 1,734 Intake Visit Reasons: TV Follow Up SWL Allergies Penicillins [PENICILLINS] Allergy (Unknown, Verified 03/10/23 13:31) FACIAL RASH HPI TV Follow Up SWL HPI Details Start time: 8.49am, End time: 9.19am ?I spent 25 minutes speaking with the patient on the phone plus an additional 5 minutes reviewing and updating records for a total of 20 minutes HPI Comments History of Present Illness Details Overall weight loss: 31.8lbs, or 9.88%TBWL Is doing 3 premade Premier protein shakes (4oz shake and 4 oz almond milk), 2 Fit Crunch protein bars and one meal ( Exercise: is doing treadmill x4/wk for 300 calories PFSH Medical History (Updated 05/27/23 @ 10:17 by Richard Torres MD) Hypothyroidism DJD (degenerative joint disease) GERD (gastroesophageal reflux disease) Hypertension Morbid obesity Surgical History (Updated 03/03/23 @ 11:18 by Amberly Taylor [facility]) Hx of spinal fusion Hx of colonoscopy Family History (Updated 03/10/23 @ 11:46 by Shira Mcelroy CMA) Mother Heart problem Father Heart problem Son No problems noted. Son No problems noted. Son No problems noted. Daughter No problems noted. Social History (Updated 03/10/23 @ 11:45 by Shira Mcelroy [facility]) Alcohol intake: current Alcohol intake frequency: holidays/special occasions only Patient Tobacco Use Status: Never used Tobacco Assessment & Plan Assessment & Plan (1) Morbid obesity: Code(s): E66.01 - Morbid (severe) obesity due to excess calories Plan: 1. Plan for lap sleeve gastrectomy including upper GI endoscopy. All tests has been completed and reviewed and the patient is cleared for the surgery. ?If diaphragmatic or ventral hernias are present at time of surgery, these will be repaired laparoscopically as well. Risks and complications were discussed in detail including possible conversion to an open procedure, anastomotic leak, bleeding requiring transfusion, small bowel obstruction, , DVT and pulmonary embolism, cardiac, or pulmonary complications, as jail complications such as anastomotic ulcer, insufficient weight loss and vitamin deficiencies. I emphasized the importance of close follow-up, adherence to instructions and good communication. So far he has proven to be an excellent communicator and very compliant with all our directions accomplishing a great weight loss. I believe that he is an excellent candidate and he is ready. 2. Continue same nutritional plan of 3 premade Premier protein shakes (4oz shake and 4 oz almond milk), 2 Fit Crunch protein bars and one meal (12 forks of meat and 12 forks of salad or vegetables). 3. 7. One full-size fork is what it can be scooped on the fork without falling aside and not what can be bit with the fork. Use regular forks like those you find in a typical restaurant. 4. Please send me pictures of your meal after you measure it and before you eat it 5. Exercise: increase treadmill t 5 days/week for 400 calories. Goal is to burn 2000 calories per week on aerobic exercise 6 .Continue to send me weight measurements weekly on Saturdays Telehealth Telehealth Location of provider rendering services: practice address Location of patient: address on file Patient Identification confirmed using: Name, : Yes Telehealth method: voice only Patient verbally consented to treatment: Yes Patient verbally consented to billing insurance company: Yes Patient informed of any privacy concerns related to visit: Yes Minutes spent on Phone/Video with Pt.: 30 Coding Level of Care Code Tele Est Pt Level 4 (06794) Diagnoses Morbid obesity E66.01 Time Spent (min) 30
[2023-06-02 09:08] VITALS: BMI 42.8
== END 2023-06-02 09:20 | disposition home or self-care (01) ==
LOC: HO.HBS 08:05
PROVIDERS: PCP Internal Medicine; Visit Provider Surgery
DX: E66.01 Morbid (severe) obesity due to excess calories (principal); Z68.41 Body mass index [BMI] 40.0-44.9, adult
CPT/HCPCS: 99443

== ENCOUNTER → 2023-06-02 08:05 | Outpatient (BNVA) | payer OTHER, SELFPAY | PROVIDERS: PCP Internal Medicine; Visit Provider Surgery ==

== ENCOUNTER 2023-06-09 08:31 | Outpatient (REF) | payer OTHER, SELFPAY ==
--- NOTE | ~2023-06-09 | FL_ITS ---
EXAMINATION: XR FLUOROSCOPY UPPER GI WITH AIR CLINICAL INFORMATION: Preop evaluation prior to bariatric surgery COMPARISON: None TECHNIQUE: Fluoroscopic air contrast upper GI examination was performed utilizing standard techniques with thin and thick barium and effervescent granules. Numerous spot images were obtained. FINDINGS: Dual and single contrast images of the esophagus demonstrate normal caliber, contour, and mucosal pattern. No evidence of stricture, mass, or ulcerations identified. Primary esophageal processes was normal. Mild disorganized tertiary contractions noted in the mid and distal esophagus. There appears to be a small sliding hiatus hernia. Gastroesophageal reflux is seen up to the thoracic inlet. Dual contrast and single contrast images of the stomach demonstrated normal contour and mucosal pattern without evidence of mass, ulceration, or other abnormality. Contrast freely passed into the gastric antrum and duodenal bulb without delay. Single and air-contrast images of the duodenal bulb demonstrate no abnormality. The duodenal sweep has a normal appearance, course, and mucosal fold appearance. No malrotation. The imaged proximal jejunum has a normal fold pattern and caliber. FLUOROSCOPY TIME: 3 minutes 43 seconds Number of Spot Images: 11 Number of Cine: 10 DOSE AREA PRODUCT: 3546 uGy-m2 (microgray-meter squared) FL/FL upper GI w air IMPRESSION: 1. Mildly disorganized esophageal motility. 2. Moderate gastroesophageal reflux. 3. Small type I hiatus hernia. This procedure was performed by Heri Herndon PA-C, and supervised by Dr. Aviles
--- NOTE | 2023-06-09 10:40 | CA_ITS ---
Acquisition Time: 2023-06-09 10:39:22 Total Exercise Time: 00:08:05 Test Indications: ABN STRESS MIBI, ABN EKG Medications: SEE H Protocol: MIC Max HR: 153 BPM 92% of Pred: 165 BPM Max BP: 182/078 mmHG Max Work Load: 10.1 METS Exercise stress test with exercise 8 min 5 sec of Mic protocol achieving 91% MPHR, with mild shortness of breath, no chest discomfort, with isolated PACs throughout test with increase in early recovery, with normotensive response to exercise, without EKG changes meeting criteria for ischemia. Echo images obtained by tech at rest and immediately post peak exercise. Definity contrast used. Test reviewed with Dr Lindo Referred By: Richard Torres Overread By: ESSENCE MEDEL
== END 2023-06-09 08:32 | disposition home or self-care (01) ==
LOC: HO.XRAY 08:31
PROVIDERS: PCP Internal Medicine; Visit Provider Surgery
DX: K21.9 Gastro-esophageal reflux disease without esophagitis (principal); E66.01 Morbid (severe) obesity due to excess calories; I10 Essential (primary) hypertension; R94.39 Abnormal result of other cardiovascular function study
CPT/HCPCS: 74246; 93350; Q9957

== ENCOUNTER → 2023-06-09 08:32 | Outpatient (BNV) | payer OTHER, SELFPAY | PROVIDERS: PCP Internal Medicine; Visit Provider Radiology Diagnostic Radiology | DX: Z01.818 Encounter for other preprocedural examination (principal) | CPT/HCPCS: 74246 ==

== ENCOUNTER → 2023-06-09 10:40 | Outpatient (BNV) | payer OTHER, SELFPAY | PROVIDERS: PCP Internal Medicine; Visit Provider Nurse Practitioner Family | DX: R06.02 Shortness of breath (principal); R94.39 Abnormal result of other cardiovascular function study | CPT/HCPCS: 93016; 93018; 93350; 93352 ==

== ENCOUNTER 2023-06-16 10:27 | Outpatient (AMB) | payer OTHER, SELFPAY ==
--- NOTE | 2023-06-16 10:32 | A.OFFVIS_ITS ---
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 Intake Note: NPV w/ EKG Reweaver Required: No Accompanied by: Self / Same As Patient Allergies Penicillins [PENICILLINS] Allergy (Unknown, Verified 06/16/23 10:34) FACIAL RASH Medication List - Last Reconciled 06/16/23 by WILMER Amador cholecalciferol (vitamin D3) 125 mcg PO DAILY levothyroxine 50 mcg PO DAILY mecobalamin (vitamin B12) 1,000 mcg sublingual DAILY thiamine HCl (vitamin B1) 100 mg PO DAILY HPI 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 He recently underwent cardiac testing and now presents for cardiology consultation and preop clearance. Today he presents for cardiology consultation. He has no known history of any heart disease, hypertension, hyperlipidemia or diabetes. Does not get chest dis comfort at rest or with activity. He has no shortness of breath that is concerning to him. If he over exerts he will notice mild shortness of breath which is not new. No PND, orthopnea or edema. No lightheadedness, presyncope, syncope, falls. He currently exercises routinely, walking on a treadmill which he tolerates well. Both his parents have issues with heart valve disease, no known MIs. He is a prior smoker, quit 25 years ago. Denies any routine alcohol use. 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 Has a known history of sleep apnea and is compliant with his CPAP mask. [facility] Medical History Hypothyroidism DJD (degenerative joint disease) GERD (gastroesophageal reflux disease) Hypertension Morbid obesity Surgical History Hx of spinal fusion Hx of colonoscopy Family History Mother Heart problem Father Heart problem Son No problems noted. Son No problems noted. Son No problems noted. Daughter No problems noted. Social History Alcohol intake: current Alcohol intake frequency: holidays/special occasions only Patient Tobacco Use Status: Never used Tobacco Review of Systems Const All systems reviewed & are unremarkable except as noted in HPI and below Denies chills, Denies daytime sleepiness, Denies fatigue, Denies fever(s), Denies frequent falls, Denies night sweats, Denies snoring, Denies weakness, Denies weight gain and Denies weight loss Eyes Denies loss of vision ENT Denies dizziness and Denies hearing loss Card Denies chest pain, Denies chest pain with activity, Denies syncope, Denies rapid heart rate, Denies edema, Denies claudication, Denies leg edema, Denies lightheadedness, Denies palpitations, Denies dyspnea, Denies dyspnea on exertion and Denies orthopnea Resp Denies cough, Denies excessive phlegm production, Denies dyspnea, Denies dyspnea on exertion, Denies snoring and Denies wheezing GI Denies abdominal pain, Denies hematochezia, Denies change in bowel habits, Denies change in stool character, Denies heartburn, Denies nausea and Denies vomiting Denies hematuria, Denies dysuria and Denies urinary frequency Musc Denies arthralgias, Denies muscle weakness, Denies numbness and Denies tingling Skin/Breast Denies nail changes and Denies rash Neuro Denies Abnormal speech present, Denies dizziness, Denies syncope, Denies frequent falls, Denies loss of vision, Denies memory loss, Denies numbness, Denies tingling and Denies weakness Psych Denies depression and Denies memory loss Endo Denies fatigue and Denies palpitations Aller/Immun Denies wheezing Physical Exam Vital Signs: Last Vital Signs Pulse 65 06/16/23 10:33 BP 118/70 06/16/23 10:33 BMI result Body Mass Index 42.0 Const Other: morbidly obese General: cooperative, healthy appearing, comfortable and no acute distress Orientation/consciousness: patient oriented x3 Neck Neck: Yes normal visual inspection Resp Effort & Inspection: normal respiratory effort Auscultation: clear to auscultation bilaterally, no crackles, no rales, no rhonchi and no wheezes Cardio Jugular venous distension: no JVD Rate: regular rate Rhythm: regular rhythm Heart sounds: S1 normal heart sound present, S2 normal heart sound present, no murmurs and no rubs Neuro General: patient oriented x3 Speech: No Abnormal speech present Extrem General: Yes normal to inspection and No no pedal edema Psych Appearance: grossly normal Mental Status: mental status grossly normal Speech and movement: Normal speech and movement present Office Procedures EKG Details: Today, read by me, normal sinus rhythm, sinus arrhythmia, right bundle branch block, LVH, rate 65, QTC 436 [id number], Complete Assessment & Plan Assessment & Plan (1) Abnormal stress test: Code(s): R94.39 - Abnormal result of other cardiovascular function study Plan: EKG was done as part of preop evaluation showing sinus rhythm, left bundle branch block, left anterior fascicular block. He then had echocardiogram done on 04/21/2023 showing EF 55-60%, normal RV, dilation at sinus of Valsalva 3.98 cm, ascending aorta 4 cm. An exercise nuclear stress test was done on 05/12/2023 with good exercise tolerance, mild shortness of breath, no EKG changes of ischemia and nuclear imaging showing inferior apical, distal septal ischemia in the RCA territory, small and mild. He then underwent a stress echocardiogram on 06/09/2023 with good exercise tolerance, no EKG or echo evidence of ischemia. Test results reviewed with him in detail. EKG done today showing normal sinus rhythm, sinus arrhythmia, right bundle branch block, LVH, rate 65. Low cardiac risk profile. Discussed test results with Dr. Mckinney and he reviewed images of stress echo and nuclear stress test. Finding on the myocardial perfusion imaging can be contributed to artifact and be false-positive. Patient has no anginal symptoms. Signs and symptoms of true angina reviewed with him. (2) Abnormal EKG: Code(s): R94.31 - Abnormal electrocardiogram [ECG] [EKG] Plan: EKG showing right bundle branch block, LVH. Initial EKG with left anterior fascicular block. Echocardiogram is normal. He has no history of presyncope or syncope. Will arrange for cardiology follow-up in 1 year with EKG for comparison. (3) RBBB: Code(s): I45.10 - Unspecified right bundle-branch block Plan: As above (4) Left anterior fascicular block: Code(s): I44.4 - Left anterior fascicular block Plan: As above (5) Preop cardiovascular exam: Code(s): Z01.810 - Encounter for preprocedural cardiovascular examination Plan: Preop for bariatric surgery with Dr. Torres in the near future. Cardiac testing as above. Reviewed with Dr. Mckinney. Patient is low cardiac risk to proceed with bariatric surgery. Call/consult Cardiology if needed Plan Time spent on chart review, documentation, interview and assessment Coding Level of Care Code New Pt Level 3 (73827) Diagnoses Abnormal stress test R94.39 Abnormal EKG R94.31 RBBB I45.10 Left anterior fascicular block I44.4 Preop cardiovascular exam Z01.810 CPT Codes EKG - CPT: 83050-[id number], Complete ([id number]) Time Spent (min) 24
[2023-06-16 10:33] VITALS: BP 118/70; PULSE 65; BMI 42.0
== END 2023-06-16 12:43 | disposition home or self-care (01) ==
PROVIDERS: PCP Internal Medicine; Visit Provider Nurse Practitioner Family
DX: R94.39 Abnormal result of other cardiovascular function study (principal); R94.31 Abnormal electrocardiogram [ECG] [EKG]; I45.10 Unspecified right bundle-branch block; I44.4 Left anterior fascicular block; Z01.810 Encounter for preprocedural cardiovascular examination
CPT/HCPCS: 93010; 99203

== ENCOUNTER → 2023-06-16 10:27 | Outpatient (BNVA) | payer OTHER, SELFPAY | PROVIDERS: PCP Internal Medicine; Visit Provider Nurse Practitioner Family | DX: Z01.810 Encounter for preprocedural cardiovascular examination (principal); R94.39 Abnormal result of other cardiovascular function study; R94.31 Abnormal electrocardiogram [ECG] [EKG]; I45.10 Unspecified right bundle-branch block; I44.4 Left anterior fascicular block | CPT/HCPCS: 93005 ==